=== PATIENT | male | born 1940 | race Caucasian/White ===

== ENCOUNTER 2018-02-17 13:41 | Inpatient (IN) | payer OTHER, BC ==
[~2018-02-17] VITALS: Ht 182.9 cm; Wt 96.6 kg
[2018-02-17] VITALS (7 sets, daily range): BP systolic 128–174; BP diastolic 84–118
--- NOTE | ~2018-02-17 | HC ---
[facility] [place] [address] CONSULTATION Name: DAVID BRAUN Room #: 247-P [facility] IN M.R.#: [id number] Admission: 02/17/18 Attend Phys: Shadi Lowry MD Discharge: Date of : 40 Report #: [id number] THIS REPORT FOR: //name// CC: Asim Lowry DATE OF SERVICE: 02/17/2018 PRIMARY CARE PHYSICIAN: Asim Emerson MD. REFERRING PHYSICIAN: Dr. Lowry. REASON FOR REFERRAL: Hemoptysis. HISTORY OF PRESENT ILLNESS: The patient is a 77-year-old white male who presents to the Emergency Room with hemoptysis. A pulmonary consultation was requested. The patient has a history of protein C deficiency for the past 15+ years. He has been on anticoagulation since then. He has done relatively well until the day of presentation when he coughed up approximately 1 cup full of bright red blood. He denies any other symptoms such as fevers, sore throat, chest pain. CT chest angiogram was performed showing no evidence of pulmonary embolus. There was evidence of moderate endobronchial thickening. No lung masses noted. No consolidation or air bronchogram is noted. The patient was seen in the ER back in December. The chest x-ray shows mild left upper lobe infiltrates. According to family, he has had upper respiratory tract symptoms since July of this year. Otherwise, denies any history of chronic lung disease such as asthma, chronic bronchitis. The patient has never smoked. PAST MEDICAL HISTORY: Notable for protein C deficiency, essential trauma. PAST SURGICAL HISTORY: Negative. ALLERGIES: None to medications. HOME MEDICATIONS: Coumadin, primidone, propranolol. FAMILY HISTORY: Noncontributory. No history of venous thromboembolic disease or chronic lung disease. [facility] [address] [place] [address] CONSULTATION Name: DAVID BRAUN Room #: 247-P [facility] IN [facility]#: [id number] Admission: 02/17/18 Attend Phys: Shadi Lowry MD Discharge: Date of : 40 Report #: [id number] SOCIAL HISTORY: He is , is a lifetime nonsmoker, drinks three cocktails per night. REVIEW OF SYSTEMS: As mentioned above, otherwise 10-point system review negative. PHYSICAL EXAMINATION: GENERAL: He is awake, alert, in no apparent distress. VITAL SIGNS: Temperature is 98.4 degrees Fahrenheit, pulse is 80, respiratory rate is 14, blood pressure 110/68 mmHg, saturation 98%. HEENT: Normocephalic, atraumatic. NECK: Supple, without lymphadenopathy or thyromegaly. CHEST: Breath sounds are fair. Few scattered crackles in the bases. No wheezes. CARDIOVASCULAR: Normal S1, S2. There is no murmur or gallop. There is no JVD. There is no carotid bruit. Pulses are 2+/4+ bilaterally. ABDOMEN: Soft, nontender, no organomegaly or masses felt. GENITOURINARY: Deferred. RECTAL: Deferred. EXTREMITIES: No cyanosis, clubbing, edema. NEUROLOGIC: Unremarkable. Mild tremor involving the upper extremities. LABORATORY DATA: Chest x-ray and CT chest as mentioned above. Chest x-ray was unremarkable. CT chest angiogram shows no evidence of pulmonary embolus, other than endobronchial thickening noted bilaterally. Electrolytes normal. Creatinine is 1.1. WBC 8300, hemoglobin is 11, platelets normal. INR is 1.7. Hemoglobin on admission was 13.5, currently is 11.0. IMPRESSION: 1. Hemoptysis in this 77-year-old white male with protein C deficiency. He denies any history of chronic lung disease. This is his first episode of hemoptysis. The CT chest angiogram showed no evidence of pulmonary embolus, but endobronchial thickening noted bilaterally. He appears to have massive hemoptysis due to anticoagulation. He appears to be bleeding from the right upper and right middle from the bronchoscopy that was just performed. Cause of the bleed is unclear. 2. Protein C deficiency, for many years has been on anticoagulation without difficulty for the last 15 years. 3. Essential tremor. DISCUSSION AND RECOMMENDATIONS: The initial cause for the patient's is unclear, but is clearly exacerbated by the need for anticoagulation in this patient with protein C deficiency. He appears to be bleeding from the right upper and right middle lobe from the bronchoscopy from earlier today. The [address] [address] CONSULTATION Name: DAVID BRAUN Room #: 247-P [facility] IN M.R.#: [id number] Admission: 02/17/18 Attend Phys: Shadi Lowry MD Discharge: Date of : 40 Report #: [id number] patient will need bronchial artery arteriogram to locate possible bleed and possible treatment including embolization, etc. This was discussed in detail with the patient and the family. 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 I would recommend transfer to tertiary center such as [facility]. The patient and the family are agreeable. We will make the arrangements as soon as possible. I also discussed the difficulty of the patient's current clinical condition. He has protein C deficiency. He is hypocoagulable. Because of his significant hemoptysis, we have to temporarily correct his anticoagulation. Family understands that he is at risk for venous thromboembolic disease while his anticoagulation is being reversed due to his bleeding complications. <ELECTRONICALLY SIGNED> By: Vince Sanders MD 02/18/18 1424 1026 1203 Vince Sanders MD /nt
--- NOTE | ~2018-02-17 | EKG ---
[place] [address] [facility] [place] [address] ELECTROCARDIOGRAM REPORT Name: DAVID BRAUN Room #: 247-P ADM IN M.R.#: [id number] Admission: 02/17/18 Attend Phys: Shadi Lowry MD Discharge: Date of : 40 Report #: [id number] THIS REPORT FOR: //name// [facility] ED Test Date: 2018-02-17 Test Time: 14:41:01 Pat Name: DAVID BRAUN Department: Room: Gender: M Tire Specialist: vishal : 1940 Requested By: Fran Quiñonez Order Number: [id number] MD: Russell Velazquez Measurements Intervals [place] Rate: 87 P: 44 ND: 139 QRS: 4 QRSD: 88 T: 35 QT: 346 QTc: 417 Interpretive Statements Sinus rhythm Probable left atrial enlargement Abnormal R-wave progression, early transition No previous ECG available for comparison Electronically Signed On 02-18-2018 11:05:26 CDT by Russell Velazquez [email or web address] <ELECTRONICALLY SIGNED> By: Russell Velazquez MD 02/18/18 1105 1441 1441 Russell Velazquez MD /SIXTO
--- NOTE | ~2018-02-17 | H ---
[facility] [place] [address] HISTORY AND PHYSICAL Name: DAVID BRAUN Room #: 247-P [facility] IN M.R.#: [id number] Admission: 02/17/18 Attend Phys: Shadi Lowry MD Discharge: 02/18/18 Date of : 40 Report #: [id number] THIS REPORT FOR: //name// CC: Asim Lowry DATE OF SERVICE: 02/17/2018 CHIEF COMPLAINT: Hemoptysis, coughing up blood. HISTORY OF PRESENT ILLNESS: The patient is a 77-year-old male with history of essential tremors and protein S deficiency, on warfarin therapy, presented to the Emergency Room with coughing up blood. Symptoms started 3 hours prior to presentation to the Emergency Room. He had coughed up approximately a cup of blood. He denies any shortness of breath. Complains of weakness. No fever or chills. There is no purulent expectoration. No fever or chills. No dizziness. The patient was evaluated in the Emergency Room and underwent a CT of the chest, which showed no evidence of any PE. There was scattered infiltrate, numerous endobronchial plugs and debris. His INR in the Emergency Room was 1.8. PAST MEDICAL HISTORY: No history of any surgery. No hypertension or diabetes. History of essential tremor, for which he takes primidone and propranolol: History of protein S deficiency, for which he takes warfarin for the last 20 years. History of DVT x 20 years ago. FAMILY HISTORY: Significant for hypertension. No history of any protein S deficiency or DVT. ALLERGIES: No known drug allergy. HOME MEDICATIONS: Include warfarin, primidone and propranolol. The patient does not know the dosages. SOCIAL HISTORY: No smoking. He does drink three cocktails a night every day. No alcohol, no drug abuse. REVIEW OF SYSTEMS: CONSTITUTIONAL: No recent weight loss, weight gain. No fever or chills. EYES: No change in vision. THROAT: Denies any sore throat. CARDIOVASCULAR: No dizziness, no chest pain, no palpitation. RESPIRATORY: As above. GASTROINTESTINAL: No nausea or vomiting. GENITOURINARY: No dysuria, hematuria. [facility] [address] [place] [address] HISTORY AND PHYSICAL Name: DAVID BRAUN Room #: 247-P [facility] IN [facility].#: [id number] Admission: 02/17/18 Attend Phys: Shadi Lowry MD Discharge: 02/18/18 Date of : 40 Report #: [id number] NEUROLOGIC: No focal numbness or weakness of the extremities. PSYCHIATRIC: No anxiety or depression. A 12-point review of system is negative other than the positive and the negative dictated in the history of present illness and the review of system. PHYSICAL EXAMINATION: VITAL SIGNS: Reveal blood pressure is 153/92, heart rate of 95 per minute. He is saturating 94% on room air, not in acute respiratory distress. EYES: Pupils equal, reactive to light, nonicteric conjunctivae. Throat appears normal. NECK: Supple, no JVD, no bruit, no lymphadenopathy. CARDIOVASCULAR SYSTEM: S1, S2, negative S3, no murmur. CHEST: Bilateral air entry present, coarse breath sounds bilaterally. Crackles noted in both bases. ABDOMEN: Soft, bowel sounds present, no mass, no organomegaly, no tenderness. PERIPHERY: No pedal edema. No calf tenderness. Dorsalis pedis 1+. He has varicose veins in his lower extremity. NEUROLOGICAL: Able to move all 4 extremities. LABORATORY DATA: Reviewed. White count is 5.8, hemoglobin 13.5, platelet is 200. Sodium is 138. INR is 1.8. BUN and creatinine of [address] of the chest showed no evidence of any PE. There is bilateral scattered infiltrate. Numerous endobronchial plugs and debris. There is a mass-like lesion in the right upper lobe. No evidence of any PE. Chest x-ray showed chronic interstitial lung changes. EKG showed sinus rhythm, probable left atrial enlargement. ASSESSMENT AND PLAN: 1. Hemoptysis, etiology not clear. It could be bronchitis/exacerbated by anticoagulation therapy. CT scan shows scattered infiltrates and endobronchial plugging. Pulmonary will be consulted. We will repeat hemoglobin at midnight. We will repeat labs in the morning. The patient will be started on DuoNeb, steroids, and IV ceftriaxone and Zithromax. We will hold off on Coumadin at present because of the active bleeding. We will repeat INR in the morning. 2. Deep venous thrombosis prophylaxis. He will be placed on sequential compression devices for deep venous thrombosis prophylaxis. 3. History of deep venous thrombosis 20 years ago and history of protein S deficiency. His INR is 1.8 today. We will hold off on Coumadin tonight because of active bleeding. Treatment plan has been explained to the patient and the family in detail. He [facility] [address] [place] [address] HISTORY AND PHYSICAL Name: DAVID BRAUN Room #: 887-P [facility] IN M.R.#: [id number] Admission: 02/17/18 Attend Phys: Shadi Lowry MD Discharge: 02/18/18 Date of : 40 Report #: [id number] might need a bronchoscopy if he continues to have hemoptysis. Treatment plan has been explained to the patient in detail. <ELECTRONICALLY SIGNED> By: Shadi Lowry MD 02/20/18 1533 1724 1747 Shadi Lowry MD /nt
--- NOTE | ~2018-02-17 | O ---
[facility] [place] [address] OPERATIVE REPORT Name: DAVID BRAUN Room #: [facility]-P ADM IN M.R.#: [id number] Admission: 02/17/18 Attend Phys: Shadi Lowry MD Discharge: Date of : 40 Report #: [id number] THIS REPORT FOR: //name// CC: JONATHON Lowry PRIMARY PHYSICIAN: Dr. Jonathon Emerson. PROCEDURE: Diagnostic bronchoscopy. CLINICAL HISTORY: A 77-year-old white male with history of recurrent DVT, protein C deficiency, now with massive hemoptysis. A diagnostic bronchoscopy was performed. POSTOPERATIVE DIAGNOSES: 1. Slow oozing of bright red blood from the right upper lobe, right lower lobe. 2. Old blood clots are noted in both lower lobes. However, no active bleeding is noted. 3. No evidence of endobronchial lesion. DESCRIPTION OF PROCEDURE: Following obtained consent and risk and benefits being explained to the patient, which include infection, bleeding, pneumothorax, procedure performed in the ICU. The patient was given 2 mg of Versed, 50 mcg of fentanyl IV push. She also received 4% aerosolized lidocaine to the upper airways. A 2% and 1% lidocaine was also used for the airways. A flexible fiberoptic bronchoscope was then introduced through the left naris without difficulty. The epiglottis was normal. Vocal cords were normal. 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 The distal trachea was unremarkable. Viri was unremarkable. The left main stem bronchus was normal. Left upper lobe was normal. Old blood clot was noted involving the left lower lobe. No active bleeding was noted. Right mainstem bronchus was unremarkable. Right upper lobe showed moderate oozing of blood emanating from the right upper lobe lumen. I did not suction or introduce bronchoscope into the airway for concerns for agitating further bleeding. The right middle lobe also revealed moderate oozing of blood. Old blood clots were noted in the right lower lobe without evidence of active bleeding. The patient tolerated the procedure well, no complications. Vital signs and saturation were within normal range. RECOMMENDATION: With evidence of slow bleeding from the least from the right upper lobe and right middle lobe, I would recommend urgent bronchial arteriogram [address] [address] OPERATIVE REPORT Name: DAVID BRAUN Room #: [facility]-P [facility] IN [facility].#: [id number] Admission: 02/17/18 Attend Phys: Shadi Lowry MD Discharge: Date of : 40 Report #: [id number] for possible bronchial artery embolization therapy. Findings were discussed with the patient and family in detail. <ELECTRONICALLY SIGNED> By: Vince Sanders MD 02/18/18 1424 1124 1149 Vince Sanders MD /nt
[2018-02-17 15:18] LABS: ABSOLUTE NEUTROPHILS 3.6 thou/uL (1.4-8.2); BASOPHILS 0.6 % (0.0-2.0); EOSINOPHILS 3.6 % (0.0-3.0); HEMATOCRIT 39.4 % (42.0-52.0); HEMOGLOBIN 13.5 gm/dL (14.0-18.0); LYMPHOCYTES 26.3 % (24.0-44.0); MCH 33.5 pg (26.0-34.0); MCHC 34.3 g/dL (28.0-37.0); MCV 97.8 fL (80.0-100.0); MONOCYTES 7.8 % (1.0-8.0); PLATELET COUNT 200 thou/uL (150-400); POLYS 61.7 % (36.0-66.0); RBC 4.03 mil/uL (4.50-6.00); RDW 17.9 % (10.5-14.5); WBC 5.8 thou/uL (4.0-11.0)
[2018-02-17 15:27] LABS: ANION GAP 8 mmol/L (7-16); BUN 24 mg/dL (7-18); CALCIUM 8.4 mg/dL (8.5-10.1); CHLORIDE 105 mmol/L (98-107); CO2 25 mmol/L (21-32); CREATININE 1.1 mg/dL (0.7-1.3); GLUCOSE 128 mg/dL (74-106); POTASSIUM 4.1 mmol/L (3.5-5.1); SODIUM 138 mmol/L (136-145)
[2018-02-17 15:32] LABS: APTT 31.9 Seconds (24.5-32.8); INR 1.8; PROTIME 18.3 Seconds (9.3-11.4)
[2018-02-17 15:36] LABS: TROPONIN-I <0.06 ng/mL (<0.06)
[2018-02-17] MEDS ORDERED: PRIMIDONE 250M250 M1 PO (19:51)
[2018-02-17] MEDS ORDERED: LEXAPRO20 MG PO (19:53)
[2018-02-17] MEDS ORDERED: PROPRANOLOL 1010 MG PO ×2 (19:57→19:59)
[2018-02-17 22:05] LABS: HEMATOCRIT 37.2 % (42.0-52.0); HEMOGLOBIN 12.8 gm/dL (14.0-18.0)
[2018-02-18] VITALS: BP 135/82
[2018-02-18 01:00] VITALS: BP 131/85
[2018-02-18 03:00] VITALS: BP 142/84
[2018-02-18 04:00] VITALS: BP 112/68
[2018-02-18 05:00] VITALS: BP 114/69
[2018-02-18 05:48] LABS: ABSOLUTE NEUTROPHILS 7.2 thou/uL (1.4-8.2); BASOPHILS 0.1 % (0.0-2.0); HEMATOCRIT 32.2 % (42.0-52.0); HEMOGLOBIN 11.1 gm/dL (14.0-18.0); MCH 34.3 pg (26.0-34.0); MCHC 34.6 g/dL (28.0-37.0); MCV 99.1 fL (80.0-100.0); PLATELET COUNT 178 thou/uL (150-400); POLYS 86.9 % (36.0-66.0); RBC 3.25 mil/uL (4.50-6.00); RDW 17.8 % (10.5-14.5); WBC 8.3 thou/uL (4.0-11.0)
[2018-02-18 05:56] LABS: CALCIUM 7.8 mg/dL (8.5-10.1); CREATININE 1.1 mg/dL (0.7-1.3); MAGNESIUM 1.6 mg/dL (1.8-2.4); POTASSIUM 4.7 mmol/L (3.5-5.1)
[2018-02-18 05:58] LABS: INR 1.7; PROTIME 16.9 Seconds (9.3-11.4)
[2018-02-18 06:00] VITALS: BP 130/81
== END 2018-02-18 12:40 | disposition short-term general hospital (02) | DRG 204 ==
LOC: ER 13:41 → EROBS 17:00 → 3W 18:00 → ICU 22:20
PROVIDERS: Internal Medicine; Nurse Practitioner Family; Physician Assistant
PROC: 0BJ08ZZ Inspection of Tracheobronchial Tree, Via Natural or Artificial Opening Endoscopic (ICD-10-PCS; principal; 2018-02-18)
DX: R04.2 Hemoptysis (principal); J18.9 Pneumonia, unspecified organism; D68.59 Other primary thrombophilia; D62 Acute posthemorrhagic anemia; R04.0 Epistaxis; G47.33 Obstructive sleep apnea (adult) (pediatric); G25.0 Essential tremor; Z86.718 Personal history of other venous thrombosis and embolism; Z82.49 Family history of ischemic heart disease and other diseases of the circulatory system; Z79.899 Other long term (current) drug therapy
CPT/HCPCS: 10078

== ENCOUNTER → 2018-05-30 | Day surgery (SDC) | payer OTHER, BC ==
[~2018-05-30] MED LIST: LEXAPRO20 MG PO; PRIMIDONE 250M250 M1 PO; PROPRANOLOL 1010 MG PO
== END | disposition home or self-care (01) ==
LOC: ULTRA 12:36
DX: I82.493 Acute embolism and thrombosis of other specified deep vein of lower extremity, bilateral (principal); J18.9 Pneumonia, unspecified organism; Z79.899 Other long term (current) drug therapy